=== PATIENT | female | born 1990 | race Asian ===

== ENCOUNTER → 2023-08-27 16:01 | Outpatient (REF) | payer OTHER, SELFPAY | LOC: HWRCS 16:01 | PROVIDERS: ATTENDING PHYSICIAN Nurse Practitioner Family | DX: R06.02 Shortness of breath (principal) | CPT/HCPCS: 93306 ==

== ENCOUNTER 2023-11-11 23:05 | Observation (INO) | payer OTHER, SELFPAY ==
[2023-11-11] VITALS (11 sets, daily range): BP systolic 102–124; BP diastolic 52–92
[2023-11-11 16:32] LABS: % Basophils 0.6 % (0-2); % Eosinophils 1.9 % (0-6); % Immature Granulocytes 0.3 % (0-0.5); % Lymphocytes 22.3 % (20.5-51.1); % Monocytes 6.5 % (1.7-9.3); % Neutrophils 68.4 % (42.2-75.2); Absolute Basophils 0.1 10^3/uL (0-0.2); Absolute Eosinophils 0.2 10^3/uL (0-0.7); Absolute Lymphocytes 2.4 10^3/uL (1.2-3.4); Absolute Monocytes 0.7 10^3/uL (0.1-0.6); Absolute Neutrophils 7.5 10^3/uL (1.4-6.5); Hematocrit 33.4 % (37.0-47.0); Hemoglobin 10.9 g/dL (12.0-16.0); Mean Corp Hgb Conc. 32.6 g/dL (33.0-37.0); Mean Corpuscular Hgb 23.3 pg (27.0-31.0); Mean Corpuscular Volume 71.5 fL (81.0-99.0); Mean Platelet Volume 10.3 fL (7.4-10.4); Nucleated Red Blood Cells % 0 %; Platelet Count 304 10^3/uL (130-400); Red Blood Cell Count 4.67 10^6/uL (4.20-5.40); Red Cell Dist. Width 14.9 % (11.5-14.5)
[2023-11-11 16:44] LABS: HCG, Serum Qualitative Screen Negative
[2023-11-11 16:55] LABS: ALT (SGPT) 18 U/L (0-35); AST (SGOT) 23 U/L (14-36); Albumin 4.5 g/dl (3.5-5.0); Alkaline Phosphatase 59 U/L (38-126); Blood Urea Nitrogen 13 mg/dl (7-17); Calcium 9.4 mg/dl (8.4-10.2); Carbon Dioxide 23 mmol/L (22-30); Chloride 106 mmol/L (98-107); Glucose 97 mg/dl (70-99); Lipase 74 U/L (23-300); Potassium 4.2 mmol/L (3.5-5.1); Sodium 141 mmol/L (135-145); Total Bilirubin 0.3 mg/dl (0.2-1.3); Total Protein 7.2 g/dl (6.3-8.2); eGFR > 60.00
--- NOTE | 2023-11-11 17:11 | ED.GENMED ---
History of Present Illness
General
Chief Complaint: Abdominal Pain
Time Seen by Provider: 11/11/23 17:02
History of Present Illness
History of Present Illness:
33-year-old female with no past medical history presents to the emergency department for evaluation of sudden onset left lower quadrant/left pelvic pain waking her up from sleep at approximately 3 PM today. Pain has been constant in nature, worse
when sitting upright, without obvious modifying factors otherwise. Radiates through to the low back, no flank pain. Denies any dysuria, urgency, or hematuria. No history of abdominal surgeries. Last menstrual cycle was 2 weeks ago. Denies
fevers, chills, sweats, nausea, or vomiting
Review of Systems
Review of Systems
Allergies reviewed?: Yes
All Other Systems: ROS reviewed and negative except as documented in HPI and ROS
Phy Exam
Physical Exam
Physical Exam:
GEN: Well appearing, NAD, WDWN
HEENT: Oral mucosa moist, no scleral icterus
Cardiac: Regular rate
Lung: No respiratory distress, no tachypnea
Abdomen: Soft, focal tenderness to light palpation of the left lower quadrant/left pelvis, no rigidity or peritoneal signs
MSK: No gross deformity or injuries
Skin: Good color, no pallor or jaundice, no rashes
Neuro: AO x3, moves all extremities freely
Psych: Calm, cooperative
Course
Orders/Labs/Results
Orders:
Orders
11/11/23 Dinner
Clear Liquid
11/11/23 16:13
Test Result ONCE
11/11/23 16:24
Complete Blood Count/With Diff Urgent
Comprehensive Metabolic Panel Urgent
HCG, Serum Qualitative Screen Urgent
Lipase Urgent
11/11/23 17:10
US Pelvis W Transvag Combined Urgent
Comment:
Reason For Exam: L pelvic pain, torsion vs ruptured cyst
11/11/23 17:11
Ketorolac [Toradol] 15 mg IV NOW STA
11/11/23 17:18
Urinalysis Reflex To Culture Urgent
Date Specimen was Collected: 11/11/23
Time Specimen was Collected: 17:13
11/11/23 19:43
Morphine Sulfate 2 mg IV NOW STA
11/11/23 20:53
Hemoglobin Routine
11/11/23 21:08
0.9% Sodium Chloride 500 ml [Nss] 500 ml IV BOLUS
HYDROmorphone [Dilaudid] 0.25 mg IV NOW STA
11/11/23 22:29
Admit Patient As Directed
Co-Sign Provider:
Level of Care: Observation services
Assign to:: Medical/Surgical
Physician / Group: [facility]
Diagnosis: pain mgmt - ruptured ovarian cyst
Patient Condition: Good
Expected length of stay greater than two midnights?: No
ELOS- Estimated Length of Stay in days: 2
I certify the patient meets the requirements for IP care: Yes
Reason for Overnight Stay: Bleeding/Bleeding Risk
PRN Pain Medication Management As Directed
May give lesser potent ordered pain med per pt: Yes
preference::
Protocol:: Medication orders for pain may be administered in a
manner that supports deferring to patient preference
when the pt is:
- Requesting an ordered lesser potent pain medication.
Least to most potent pain medications are defined
as: acetaminophen < NSAID < tramadol < opioids
(morphine, oxycodone, hydromorphone).
- Requesting a lesser dose of the same medication IF
ORDERED.
- Requesting a less intrusive route of administration
if both routes are prescribed by the provider (PO <
IV).
11/11/23 22:31
Activity As Directed
Activity Level: Bathroom Privileges
Out of Bed- Ad Lena
11/11/23 22:33
Ketorolac [Toradol] 15 mg IV Q8HPRN PRN
Oxycodone/Acetaminophen [Percocet 5/325] 1 tablet PO Q4HPRN PRN
11/11/23 22:38
Compression Sleeves [Pneumatic Compression Sleeves] As Directed
Type: Knee high
DX Deep Vein Thrombosis Video Routine
11/11/23 22:39
Diphenhydramine [Benadryl] 25 mg PO HSPRN PRN
11/11/23 23:55
H&H Routine
11/12/23 06:00
Complete Blood Count/With Diff IN AM
Abnormal Lab Results
11/11/23 11/11/23
16:24 20:53
WBC 11.0 H 10^3/uL
(4.8-10.8)
Hgb 10.9 L g/dL 9.8 L g/dL
(12.0-16.0) (12.0-16.0)
Hct 33.4 L %
(37.0-47.0)
MCV 71.5 L fL
(81.0-99.0)
MCH 23.3 L pg
(27.0-31.0)
MCHC 32.6 L g/dL
(33.0-37.0)
RDW 14.9 H %
(11.5-14.5)
Absolute Neuts (auto) 7.5 H 10^3/uL
(1.4-6.5)
Absolute Monos (auto) 0.7 H 10^3/uL
(0.1-0.6)
11/11/23 16:24
Vital Signs
Initial and Last Documented VS:
Initial Vital Signs
Temp Pulse Resp BP Pulse Ox
98.5 F 91 16 124/54 99
11/11/23 16:10 11/11/23 16:10 11/11/23 16:10 11/11/23 16:10 11/11/23 16:10
Last Documented Vital Signs
Temp Pulse Resp BP Pulse Ox
98.5 F 95 14 113/92 100
11/11/23 16:10 11/11/23 22:30 11/11/23 22:30 11/11/23 22:30 11/11/23 22:30
MDM/Problems Addressed
MDM/Problems Addressed:
33-year-old female presenting with acute onset of left pelvic pain found to have hemorrhagic ovarian cyst with a moderate volume of blood products in the pelvis. Initially was hopeful for discharge to home however on reevaluation the patient
complained of continued severe pain, she was remedicated and repeat hemoglobin revealed a 1 g drop in 4 hours. Given her persistent pain I discussed the case with [facility] who will admit her to their service for observation, at this time there is no
indication for operative intervention
*Critical Care Note
Total Time (30-74mins, 75-104mins- exclusive of procedures): Not Applicable
Update Note
Update Note:
2114: Re-evaluated pt. Hgb dropped 1.1g from prior. She continues to have moderate-severe pain, rated 8/10. Will contact [facility]
2139: D/W [facility] via [employer]. [facility] will be in to evaluate pt
2209: [facility] Dr Rios at bedside
ED Attending Note
-
Portions of this chart may have been created with voice recognition software.� Occasional wrong word or��sound alike� substitutions may have occurred due to the inherent limitations of voice recognition software.
Discharge Plan
Departure
Patient Disposition: Admit
Date of Disposition: 11/11/23
Time of Disposition: 22:43
Admit to: Med/Surg
Presentation/result/management discussed w/ accepting MD/DO: Sophia
Discharge Problem:
Hemorrhagic cyst of ovary
Prescriptions:
No Action
vit-iron fum-folic ac 1 EACH tablet
1 ea PO DAILY
acetaminophen 325 MG tablet
650 mg PO Q4HPRN PRN (Reason: mild pain) 0RF
ibuprofen 600 MG tablet
600 mg PO Q4HPRN PRN (Reason: moderate pain/cramps) 0RF
Referrals:
Jennifer Bates, [Family Provider] -
Interventions
Interventions:
*Risk Screen - Suicide Last Done: 11/11/23 17:10
*General Assessment Last Done: 11/11/23 17:10
*Neglect/Abuse Screening Last Done: 11/11/23 17:10
ED- Fall Risk Assessment Last Done: 11/11/23 17:10
LO-Miniwg-Vbkmalwtyk Assessment Last Done: 11/11/23 17:10
Discharge Date and Time
Print Language: VINCENTIAN
[2023-11-11] MEDS: TORADOL 15 MG IV (17:16)
[2023-11-11 17:36] LABS: Urine Albumin Negative (Neg - Trace); Urine Bilirubin Negative (Negative); Urine Character Clear (Clear); Urine Color Yellow; Urine Glucose Negative (Negative); Urine Ketone Negative (Negative); Urine Leukocyte Negative (Negative); Urine Nitrite Negative (Negative); Urine Occult Blood Negative (Negative); Urine Specific Gravity 1.015 (<1.030); Urine Urobilinogen Negative (Neg - 1+)
[2023-11-11] MEDS: MORPHINE SULFATE 2 MG IV (19:52)
[2023-11-11 21:00] LABS: Hemoglobin 9.8 g/dL (12.0-16.0)
[2023-11-11] MEDS: NSS 500 IV (21:22)
[2023-11-11] MEDS: DILAUDID 0.25 MG IV (21:23)
--- NOTE | 2023-11-11 22:50 | W.PN.ADMIT ---
Progress Note - Admit
Progress Note - Admit
33 yo admitted for obs and serial h/h via ER after presenting with LLQ pain. PT felt fine today until after lunch. + pain in LLQ - + nausea then - no VB - no vag d/c - no dysuria. In ER was AF with normal VSS - hgb = 10.9 - recheck 4 hours
later 9.8. + known anemia with hgb = 10.7 with PCP in May. + h/o menorrhagia as source of anemia. In ER had abd pain . Pelvic u/s showed Uterus [id number] ES = 7mm Normal ovaries bilat. + Mod complex free fluid - poss from ruptured /
hemorrhagic cyst. HCG negative. U/a negative. Normal electrolytes.
PMH - Migraines - Iron def anemia
PSH - Gangioln cyst
All - latex
Meds - Rizatriptan
SH - non smoker
FH - non contributory
POBH - - NVD x 2
PGYNH - no abnl paps - + heavy menses - known anemia
98.5 - 76 - 14 - 119/64
HEENT - wnl
Lungs clear bilat
CV - RRR
Back - no CVAT
Abd - soft - + LLQ with palpation - no rebound - no guarding + BS
Pelvic exam - EG - WNL - no VB
BME - RV uterus - no CMT + mild tender to palp - more on left
Ass- Pelvic - abd pain - poss ruptured ovarian cyst
Plan - Pain mgmt - Toradol and percocet
Serial H/H and CBC
Clear liq diet until am
Heplock IV - will hold IVF for now
--
See dictated H+P
[2023-11-12] MEDS: TORADOL 15 MG IV (01:24)
[2023-11-12 01:30] VITALS: BP 104/84
[2023-11-12 02:06] LABS: Hematocrit 28.3 % (37.0-47.0); Hemoglobin 9.4 g/dL (12.0-16.0)
[2023-11-12 05:45] VITALS: BP 88/55
[2023-11-12 06:04] LABS: % Basophils 0.6 % (0-2); % Eosinophils 2.8 % (0-6); % Immature Granulocytes 0.1 % (0-0.5); % Lymphocytes 42.6 % (20.5-51.1); % Monocytes 7.2 % (1.7-9.3); % Neutrophils 46.7 % (42.2-75.2); Absolute Eosinophils 0.2 10^3/uL (0-0.7); Absolute Lymphocytes 2.9 10^3/uL (1.2-3.4); Absolute Monocytes 0.5 10^3/uL (0.1-0.6); Absolute Neutrophils 3.2 10^3/uL (1.4-6.5); Hematocrit 29.5 % (37.0-47.0); Hemoglobin 9.6 g/dL (12.0-16.0); Mean Corp Hgb Conc. 32.5 g/dL (33.0-37.0); Mean Corpuscular Hgb 23.8 pg (27.0-31.0); Mean Platelet Volume 10.4 fL (7.4-10.4); Nucleated Red Blood Cells % 0 %; Platelet Count 212 10^3/uL (130-400); Red Blood Cell Count 4.04 10^6/uL (4.20-5.40); Red Cell Dist. Width 14.6 % (11.5-14.5); White Blood Cell Count 6.8 10^3/uL (4.8-10.8)
--- NOTE | 2023-11-12 06:31 | W.PN.GYN.DG ---
Today's Communication / Plan
-
PO pain meds
Regular diet
Ambulate
Will reassess in pm for prob d/c to home
Assessment / Plan
-
Assessment: Pelvic pain - prob ruptured ovarian cyst
Hgb stable
Plan:
PO pain meds
Regular diet
Ambulate
Will reassess in pm for prob d/c to home
Subjective / Objective Data
Subjective Data
Pt feeling better - pain is 3 of 10 - was described as 9 in ER. Got one dose of IV toradol while on the floor
Objective Data
Vital Signs
Temp Pulse Resp BP Pulse Ox
97.3 F 71 16 88/55 100
11/12/23 05:45 11/12/23 05:45 11/12/23 05:45 11/12/23 05:45 11/12/23 05:45
Physical Exam
-
Cardiac: Regular rate & rhythm
Lungs: Clear: Bilateral
Abdomen: Soft and Nontender
Bowel Sounds: Normal
Data Reviewed
-
Lab Data
11/12/23 05:42
11/11/23 16:24
Urine Color Yellow 11/11/23 17:18
Urine Clarity Clear (Clear) 11/11/23 17:18
Urine pH 8.0 (5.0-9.0) 11/11/23 17:18
Ur Specific [place] 1.015 (<1.030) 11/11/23 17:18
Urine Ketones Negative (Negative) 11/11/23 17:18
Urine Bilirubin Negative (Negative) 11/11/23 17:18
Urine Urobilinogen Negative (Neg - 1+) 11/11/23 17:18
[2023-11-12] MEDS: MOTRIN 600 MG PO ×2 (08:42→15:39)
[2023-11-12 08:45] VITALS: BP 87/52
[2023-11-12 12:03] VITALS: BP 97/55
--- NOTE | 2023-11-12 14:16 | CM ---
Pt seen at bedside. Pt lives w/ spouse and kids in a two story home.
Denies SNF/HC in the past
Denies DME
Denies food/housing/transportation insecurities
PCP confirmed, demographics confirmed, pharmacy confirmed.
OBS form reviewed, pt provided a copy. Copy placed onto chart
Plan: Home no needs
[2023-11-12 16:08] VITALS: BP 98/38
--- NOTE | 2023-11-12 16:53 | W.PN.UPDATE ---
Update Note
Progress Note Update
PT dong well - feeling much better
Using only Motrin for pain - much less today.
Abd soft and nontender on exam
Will see her in the office in 4 weeks for f/u
Call if recurrent symptoms - she has my name and office #
--- NOTE | 2023-11-12 16:57 | W.DS.TRANS ---
DC Summary - [employer]
-
Discharge Instructions:
Discharge Diagnosis/Procedures Ruptured ovarian cyst
Diet No restrictions
Additional Activity Pelvic rest for 2 weeks
Driving Restrictions As prior to admission
Bathing Restrictions None
Instructions:
Stand-Alone Forms:
Changes to Home Medications: No
Discharge Medications:
DC Medications w/original date entered in [facility]
No Meds [No Current Medications] 11/12/23
Home Medication Changes
Pending Results: No
== END 2023-11-12 17:19 | disposition home or self-care (01) ==
LOC: LDRP 23:05
PROVIDERS: Emergency Medicine; Physician Assistant; ADMITTING PHYSICIAN Obstetrics & Gynecology Gynecology; EMERGENCY PHYSICIAN Emergency Medicine; FAMILY PHYSICIAN Family Medicine
DX: N83.202 Unspecified ovarian cyst, left side (principal); K66.1 Hemoperitoneum; R10.32 Left lower quadrant pain; R10.2 Pelvic and perineal pain; R11.0 Nausea; D50.9 Iron deficiency anemia, unspecified; G43.909 Migraine, unspecified, not intractable, without status migrainosus
CPT/HCPCS: 76830; 76856; 80053; 81003; 83690; 84703; 85014; 85018; 85025; 96361; 96374; 96375; 99285

== ENCOUNTER → 2024-04-22 11:21 | Outpatient (REF) | payer OTHER, SELFPAY | LOC: RAD 11:21 | PROVIDERS: ATTENDING PHYSICIAN Obstetrics & Gynecology Gynecology | DX: R10.2 Pelvic and perineal pain (principal); R85.9 Unspecified abnormal finding in specimens from digestive organs and abdominal cavity | CPT/HCPCS: 76830; 76856 ==